=== PATIENT | male | born 1950 | race Caucasian/White ===

== ENCOUNTER 2017-01-08 00:56 | Observation (INO) | payer MEDICAID, OTHER ==
[2017-01-08] VITALS (11 sets, daily range): BP systolic 115–157; BP diastolic 71–93; PULSE 49–62; RESP 16–20; TEMP 96.2–98.5; O2SAT 95–98
--- NOTE | 2017-01-08 01:42 | PD ---
HPI Chief Complaint: Chest Pain Time Seen by Provider: 01:30 Travel History International Travel<30 days: No Contact w/Intl Traveler<30days: No Traveled to known affect area: No History of Present Illness HPI The patient is a 66-year-old male who presents emergency department for chest pain. The patient has had intermittent chest pain over the last 3 days that is substernal, sharp, lasting approximately 30 seconds, nonradiating. He does complain of mild shortness of breath and occasional diaphoresis with this chest pain. The patient states this started 3 days ago when he was moving a p.m. The patient states he got hot, lightheaded, and had a syncopal episode. The patient was seen at [facility] in [place], [place]. Patient states that he was admitted and saw his chip person, Dr. Keyla Umanzor, was subsequently discharged home. The patient does have a history of previous CABG it was performed by Dr. Boucher 2 years ago. The patient states he had an abnormal stress test proximal to 9 months ago and underwent cardiac catheterization, the patient states it was negative. He does complain of mild exertional symptoms that are intermittent, denies any active chest pain upon arrival. The patient's primary physician is Dr. Davalos. [facility] Social History Alcohol Use: No Tobacco Use: No Allergies-Medications (Allergen,Severity, Reaction): Coded Allergies: Red Dyes - Various (Verified Allergy, Severe, 01/08/17) Reported Meds & Prescriptions Reported Meds & Active Scripts Active No Active Prescriptions or Reported Medications Review of Systems Except as stated in HPI: all other systems reviewed are Neg General / Constitutional: No: Fever HENT: Positive: Lightheadedness Cardiovascular: Positive: Chest Pain or Discomfort, Diaphoresis, Dyspnea on exertion Respiratory: Positive: Shortness of Breath Gastrointestinal: Positive: Nausea, No: Abdominal Pain Musculoskeletal: No: Weakness, Edema Neurologic: No: Dizziness Physical Exam Narrative GENERAL: Awake, alert, pleasant 66-year-old male who appears his stated age and is in no acute respiratory distress. SKIN: Focused skin assessment warm/dry. HEAD: Atraumatic. Normocephalic. EYES: Pupils equal and round. No scleral icterus. No injection or drainage. ENT: No nasal bleeding or discharge. Mucous membranes pink and moist. NECK: Trachea midline. No JVD. CARDIOVASCULAR: Regular rate and rhythm. No murmur appreciated. Well-healed surgical scar. RESPIRATORY: No accessory muscle use. Clear to auscultation. Breath sounds equal bilaterally. GASTROINTESTINAL: Abdomen soft, non-tender, nondistended. Well-healed scars in the upper aspect of the abdomen. MUSCULOSKELETAL: No obvious deformities. No clubbing. No cyanosis. No edema. NEUROLOGICAL: Awake and alert. No obvious cranial nerve deficits. Motor grossly within normal limits. Normal speech. PSYCHIATRIC: Appropriate mood and affect; insight and judgment normal. Data Data Last Documented VS Vital Signs Date Time Temp Pulse Resp B/P Pulse Ox O2 Delivery O2 Flow Rate FiO2 01/08/17 01:54 18 97 2 01/08/17 01:54 Nasal Cannula 01/08/17 01:54 54 132/82 125/81 01/08/17 00:57 98.5 Orders Electrocardiogram (01/08/17 ) Electrocardiogram (01/08/17 01:38) Ckmb (Isoenzyme) Profile (01/08/17 01:38) Complete Blood Count With Diff (01/08/17 01:38) Comprehensive Metabolic Panel (01/08/17 01:38) Magnesium (Mg) (01/08/17 01:38) Prothrombin Time / Inr (Pt) (01/08/17 01:38) Act Partial Throm Time (Ptt) (01/08/17 01:38) Troponin I (01/08/17 01:38) Lipase (01/08/17 01:38) Chest, Single Ap (01/08/17 01:38) Ecg Monitoring (01/08/17 01:38) Bilateral Bp Monitoring (01/08/17 01:38) Iv Access Insert/Monitor (01/08/17 01:38) Oximetry (01/08/17 01:38) Oxygen Administration (01/08/17 01:38) Aspirin Chew (Aspirin Chew) (01/08/17 01:45) Sodium Chloride 0.9% Flush (Ns Flush) (01/08/17 01:45) CKMB (01/08/17 01:51) CKMB% (01/08/17 01:51) Admit Order (Ed Use Only) (01/08/17 02:32) Labs Laboratory Tests Test 01/08/17 01:51 White Blood Count 5.3 TH/MM3 Red Blood Count 4.57 MIL/MM3 Hemoglobin 13.6 GM/DL Hematocrit 38.4 % Mean Corpuscular Volume 84.0 FL Mean Corpuscular Hemoglobin 29.8 PG Mean Corpuscular Hemoglobin 35.5 % Concent Red Cell Distribution Width 14.9 % Platelet Count 236 TH/MM3 Mean Platelet Volume 7.4 FL Neutrophils (%) (Auto) 42.1 % Lymphocytes (%) (Auto) 46.5 % Monocytes (%) (Auto) 9.1 % Eosinophils (%) (Auto) 1.9 % Basophils (%) (Auto) 0.4 % Neutrophils # (Auto) 2.2 TH/MM3 Lymphocytes # (Auto) 2.5 TH/MM3 Monocytes # (Auto) 0.5 TH/MM3 Eosinophils # (Auto) 0.1 TH/MM3 Basophils # (Auto) 0.0 TH/MM3 CBC Comment DIFF FINAL Differential Comment Prothrombin Time 10.8 SEC Prothromb Time International 1.0 RATIO Ratio Activated Partial 24.5 SEC Thromboplast Time Sodium Level 137 MEQ/L Potassium Level 3.9 MEQ/L Chloride Level 102 MEQ/L Carbon Dioxide Level 26.7 MEQ/L Anion Gap 8 MEQ/L Blood Urea Nitrogen 11 MG/DL Creatinine 0.89 MG/DL Estimat Glomerular Filtration 86 ML/MIN Rate Random Glucose 313 MG/DL Calcium Level 8.4 MG/DL Magnesium Level 1.7 MG/DL Total Bilirubin 1.4 MG/DL Aspartate Amino Transf 20 U/L (AST/SGOT) Alanine Aminotransferase 42 U/L (ALT/SGPT) Alkaline Phosphatase 79 U/L Total Creatine Kinase 105 U/L Troponin I LESS THAN 0.02 NG/ML Total Protein 6.7 GM/DL Albumin 3.4 GM/DL Lipase 178 U/L [facility] Medical Decision Making Medical Screen Exam Complete: Yes Emergency Medical Condition: Yes Medical Record Reviewed: Yes Interpretation(s) EKG reveals sinus bradycardia with a heart rate of 55. Nonspecific T wave changes. Laboratory Tests Test 01/08/17 01:51 White Blood Count 5.3 TH/MM3 Red Blood Count 4.57 MIL/MM3 Hemoglobin 13.6 GM/DL Hematocrit 38.4 % Mean Corpuscular Volume 84.0 FL Mean Corpuscular Hemoglobin 29.8 PG Mean Corpuscular Hemoglobin 35.5 % Concent Red Cell Distribution Width 14.9 % Platelet Count 236 TH/MM3 Mean Platelet Volume 7.4 FL Neutrophils (%) (Auto) 42.1 % Lymphocytes (%) (Auto) 46.5 % Monocytes (%) (Auto) 9.1 % Eosinophils (%) (Auto) 1.9 % Basophils (%) (Auto) 0.4 % Neutrophils # (Auto) 2.2 TH/MM3 Lymphocytes # (Auto) 2.5 TH/MM3 Monocytes # (Auto) 0.5 TH/MM3 Eosinophils # (Auto) 0.1 TH/MM3 Basophils # (Auto) 0.0 TH/MM3 CBC Comment DIFF FINAL Differential Comment Prothrombin Time 10.8 SEC Prothromb Time International 1.0 RATIO Ratio Activated Partial 24.5 SEC Thromboplast Time Sodium Level 137 MEQ/L Potassium Level 3.9 MEQ/L Chloride Level 102 MEQ/L Carbon Dioxide Level 26.7 MEQ/L Anion Gap 8 MEQ/L Blood Urea Nitrogen 11 MG/DL Creatinine 0.89 MG/DL Estimat Glomerular Filtration 86 ML/MIN Rate Random Glucose 313 MG/DL Calcium Level 8.4 MG/DL Magnesium Level 1.7 MG/DL Total Bilirubin 1.4 MG/DL Aspartate Amino Transf 20 U/L (AST/SGOT) Alanine Aminotransferase 42 U/L (ALT/SGPT) Alkaline Phosphatase 79 U/L Total Creatine Kinase 105 U/L Troponin I LESS THAN 0.02 NG/ML Total Protein 6.7 GM/DL Albumin 3.4 GM/DL Lipase 178 U/L Chest x-ray reveals no acute disease. Sternotomy wires are noted. Differential Diagnosis Differential diagnosis includes acute coronary syndrome, GERD, esophageal spasm , pleurisy, pulmonary embolism, pneumonia, pancreatitis, deconditioning. Narrative Course IV was established, labs are drawn and sent, and the patient was placed on cardiac telemetry monitoring and continuous pulse oximetry monitoring. EKG was ordered and interpreted. Chest x-ray was obtained. The patient was administered aspirin 162 mg orally. The patient's chest x-ray reveals previous sternotomy, otherwise unremarkable. Initial troponin is negative. Glucose is mildly elevated. The patient does have multiple risk factors including previous CABG with CAD, hypertension, hyperlipidemia, and diabetes. The patient will be 23 hour observation to chest pain center for serial cardiac enzymes. The patient's records will also try to be obtained for previous cardiac catheterization from 9 months ago as well as any stress test that was performed prior to the cardiac catheterization. The patient is comfortable with this plan of care. Physician Communication Physician Communication The patient will be 23 hour observation to chest pain center for serial cardiac enzymes and further evaluation by cardiology. Diagnosis Primary Impression: Chest pain Qualified Code: R07.9 - Chest pain, unspecified type Admitting Information Admitting Physician Requests: Observation Scripts No Active Prescriptions or Reported Meds Condition: Stable Joaquin Turner MD January 08, 2017 01:42
[2017-01-08] MEDS ORDERED: SODIUM CHLORIDE 0.9% FLUSH 10 ML FLUSH IVF PRN (01:45)
[2017-01-08] MEDS ORDERED: ASPIRIN 81 MG CHEW TAB PO ONE (01:45)
[2017-01-08 02:02] LABS: AUTOMATED NEUTROPHIL # 2.2 TH/MM3 (1.8-7.7); BASOPHIL % 0.4 % (0.0-2.0); EOSINOPHIL # 0.1 TH/MM3 (0-0.4); EOSINOPHIL % 1.9 % (0.0-4.0); HEMATOCRIT 38.4 % (39.0-51.0); HEMO FLAGS DIFF FINAL; LYMPH % 46.5 % (9.0-44.0); LYMPHOCYTE # 2.5 TH/MM3 (1.0-4.8); MEAN CORPUSCULAR HEMOGLOBIN 29.8 PG (27.0-34.0); MEAN CORPUSCULAR HGB CONC 35.5 % (32.0-36.0); MONO % 9.1 % (0.0-8.0); NEUT % 42.1 % (16.0-70.0); PLATELET COUNT 236 TH/MM3 (150-450); RED BLOOD COUNT 4.57 MIL/MM3 (4.50-5.90); RED CELL DISTRIBUTION WIDTH 14.9 % (11.6-17.2); WHITE BLOOD COUNT 5.3 TH/MM3 (4.0-11.0)
[2017-01-08 02:12] LABS: APTT (PATIENT) 24.5 SEC (24.3-30.1); PROTHROMBIN TIME - PATIENT 10.8 SEC (9.8-11.6)
[2017-01-08 02:20] LABS: ALT (GPT) 42 U/L (12-78); ANION GAP 8 MEQ/L (5-15); AST (GOT) 20 U/L (15-37); BICARBONATE 26.7 MEQ/L (21.0-32.0); BLOOD UREA NITROGEN 11 MG/DL (7-18); CHLORIDE 102 MEQ/L (98-107); GLOMERULAR FILTRATION RATE 86 ML/MIN (>89); MAGNESIUM 1.7 MG/DL (1.5-2.5); POTASSIUM 3.9 MEQ/L (3.5-5.1); SODIUM (NA) 137 MEQ/L (136-145)
[2017-01-08 02:24] LABS: ALKALINE PHOSPHATASE 79 U/L (45-117); CREATINE KINASE 105 U/L (39-308); TOTAL BILIRUBIN ADULT 1.4 MG/DL (0.2-1.0)
[2017-01-08 02:36] LABS: CKMB 1.8 NG/ML (0.5-3.6)
[2017-01-08] MEDS ORDERED: SODIUM CHLORIDE 0.9% FLUSH 10 ML FLUSH IV FLUSH PRN (02:45)
[2017-01-08] MEDS ORDERED: ACETAMINOPHEN 500 MG CPLT PO PRN (02:45)
[2017-01-08] MEDS ORDERED: MORPHINE SULFATE 4 MG/ML INJ IV PRN (02:45)
[2017-01-08] MEDS ORDERED: ACETAMINOPHEN/HYDROcodone 325 MG/7.5 MG TAB PO PRN (02:45)
[2017-01-08] MEDS ORDERED: ONDANSETRON HCL 4 MG/2 ML VIAL IV PRN (02:45)
[2017-01-08] MEDS ORDERED: NITROGLYCERIN 0.4 MG SL 25 TABS/BTL SL PRN (02:45)
[2017-01-08 05:38] LABS: CREATINE KINASE 91 U/L (39-308)
[2017-01-08 08:23] LABS: CREATINE KINASE 78 U/L (39-308)
--- NOTE | 2017-01-08 08:26 | RADRPT ---
EXAM DATE/TIME: 01/08/2017 02:01 [facility] COMPARISON: No previous studies available for comparison. INDICATIONS : Chest pain. MEDICAL HISTORY : None. SURGICAL HISTORY : None. ENCOUNTER: Initial ACUITY: 3 days PAIN SCORE: 5/10 LOCATION: Bilateral chest FINDINGS: A single view of the chest demonstrates the lungs to be symmetrically aerated without evidence of mas s, infiltrate or effusion. The cardiomediastinal contours are unremarkable. Osseous structures are intact. Sternotomy wires are noted. CONCLUSION: No acute disease. Justen Alfredo MD on January 08, 2017 at 2:27 Board Certified Radiologist. This report was verified electronically.
[2017-01-08] MEDS ORDERED: ASPIRIN 325 MG TAB PO SCH (09:00)
[2017-01-08] MEDS ORDERED: SODIUM CHLORIDE 0.9% FLUSH 10 ML FLUSH IV FLUSH SCH (09:00)
[2017-01-08] MEDS ORDERED: REGADENOSON INJ 0.4 MG/5 ML SYR ONE (09:44)
--- NOTE | 2017-01-08 11:02 | HHI.HP ---
[facility] Primary Care Physician Guadalupe Davalos MD Chief Complaint Chest pain History of Present Illness This is a 6-year-old male that presents to ED complaining of 3 days of intermittent chest discomfort. He states he was seen appeared [facility] 2 days ago for the same and was discharged. No stress testing. He states he did see his grinding operator at the time had medication changed but he has not filled them yet. He doesn't history of CAD. States had a three-vessel bypass 2 years ago. He also states that he had a heart catheterization about 9 months ago at [facility]. He states he was told that it looked good. His discomfort is described as a pressure. It last couple minutes at a time. He gets short of breath and diaphoretic with it. No nausea. Nothing in particular brings on the discomfort. Review of Systems General: Patient denies fevers, chills recent, and recent travel HEENT: Patient denies headache, sore throat, difficulty swallowing. Cardiovascular: Has the chest discomfort as mentioned above. Denies sensation of heart beating rapidly or irregularly. No syncope. Occasional diaphoresis. Respiratory: Occasional shortness of breath. Denies inspirational chest discomfort. Denies coughing wheezing or hemoptysis. GI: Patient denies nausea, vomiting, diarrhea, abdominal pain, bloody stools. Musculoskeletal: Patient denies joint pain or edema. Denies calf pain or edema. Neurovascular: Patient denies numbness, tingling, weakness in extremities. Denies headache. Endocrine: Denies polyuria and polydipsia. Hematologic: Denies easy bruising. Skin: Denies rash or itching. Past Family Social History Allergies: Coded Allergies: Red Dyes - Various (Verified Allergy, Severe, 01/08/17) Past Medical History Coronary artery disease with three-vessel bypass 2 years ago. Hypertension, diabetes, and hyperlipidemia. Past Surgical History Coronary artery bypass grafting.. Heart catheterization about 9 months ago without intervention. Reported Medications Reported Meds & Active Scripts Active No Active Prescriptions or Reported Medications Active Ordered Medications Current Medications Medications (Trade) Dose Ordered Sig/Irma Route Start Time Stop Time Status Last Admin (NS Flush) 2 ml UNSCH PRN IV FLUSH 01/08/17 02:45 (NS Flush) 2 ml BID IV FLUSH 01/08/17 09:00 01/08/17 08:00 (Tylenol) 500 mg Q4H PRN PO 01/08/17 02:45 ([place] 7.5-325 Mg) 1 tab Q4H PRN PO 01/08/17 02:45 (Morphine Inj) 2 mg Q4H PRN IV 01/08/17 02:45 (Zofran Inj) 4 mg Q6H PRN IV 01/08/17 02:45 (Nitrostat Sl) 0.4 mg Q5M PRN SL 01/08/17 02:45 (Aspirin) 325 mg DAILY PO 01/08/17 09:00 Family History There is family history of CAD. Social History Patient is a nonsmoker. Denies alcohol or illicit drugs. Physical Exam Vital Signs Vital Signs Date Time Temp Pulse Resp B/P Pulse Ox O2 Delivery O2 Flow Rate FiO2 01/08/17 08:00 97.1 56 20 130/75 95 01/08/17 07:44 57 01/08/17 07:40 96 21 01/08/17 04:09 49 01/08/17 04:08 49 01/08/17 03:39 49 16 143/93 97 01/08/17 03:10 98 01/08/17 02:52 53 18 123/71 98 Room Air 01/08/17 01:54 18 97 2 01/08/17 01:54 97 Nasal Cannula 2 01/08/17 01:54 54 18 132/82 97 Nasal Cannula 2 125/81 01/08/17 01:19 63 18 97 Room Air 01/08/17 00:57 98.5 62 18 157/86 97 Room Air Physical Exam GENERAL: This is a well-nourished, well-developed patient, in no apparent distress. Patient speaks in clear complete sentences. Patient is pleasant. HEENT: Head is atraumatic and normocephalic. Neck is supple without lymphadenopathy and trachea is midline. No JVD or carotid bruits. CARDIOVASCULAR: Regular rate and rhythm without murmurs, gallops, or rubs. RESPIRATORY: Clear to auscultation. Breath sounds equal bilaterally. No wheezes , rales, or rhonchi. Chest wall is nontender. No use of accessory muscles. GASTROINTESTINAL: Abdomen is nontender, nondistended. Abdomen soft. No obvious pulsatile mass or bruit. No CVA tenderness. Strong femoral pulses bilaterally. Normal bowel sounds in all quadrants. MUSCULOSKELETAL: Patient is moving upper and lower extremities freely. No calf tenderness or edema, no Homans sign. Strong pulses in upper and lower extremities. NEUROLOGICAL: Patient is alert and oriented. Cranial nerves 2-12 are grossly intact. No focal deficits and speech is clear. SKIN: No rash and turgor is normal. Laboratory Laboratory Tests Test 01/08/17 01/08/17 01/08/17 01:51 04:32 07:32 White Blood Count 5.3 Red Blood Count 4.57 Hemoglobin 13.6 Hematocrit 38.4 Mean Corpuscular Volume 84.0 Mean Corpuscular Hemoglobin 29.8 Mean Corpuscular Hemoglobin 35.5 Concent Red Cell Distribution Width 14.9 Platelet Count 236 Mean Platelet Volume 7.4 Neutrophils (%) (Auto) 42.1 Lymphocytes (%) (Auto) 46.5 Monocytes (%) (Auto) 9.1 Eosinophils (%) (Auto) 1.9 Basophils (%) (Auto) 0.4 Neutrophils # (Auto) 2.2 Lymphocytes # (Auto) 2.5 Monocytes # (Auto) 0.5 Eosinophils # (Auto) 0.1 Basophils # (Auto) 0.0 CBC Comment DIFF FINAL Differential Comment Prothrombin Time 10.8 Prothromb Time International 1.0 Ratio Activated Partial 24.5 Thromboplast Time Sodium Level 137 Potassium Level 3.9 Chloride Level 102 Carbon Dioxide Level 26.7 Anion Gap 8 Blood Urea Nitrogen 11 Creatinine 0.89 Estimat Glomerular Filtration 86 Rate Random Glucose 313 Calcium Level 8.4 Magnesium Level 1.7 Total Bilirubin 1.4 Aspartate Amino Transf 20 (AST/SGOT) Alanine Aminotransferase 42 (ALT/SGPT) Alkaline Phosphatase 79 Total Creatine Kinase 105 91 78 Creatine Kinase MB 1.8 Troponin I LESS THAN 0.02 LESS THAN 0.02 LESS THAN 0.02 Total Protein 6.7 Albumin 3.4 Lipase 178 Result Diagram: 01/08/1715001/08/17150 Imaging Last 48 hours Impressions Chest X-Ray 01/08/17 0138 Signed Impressions: Service Date/Time: Sunday, January 08, 2017 02:01 - CONCLUSION: No acute disease. Justen Alfredo MD Course EKGs have sinus bradycardia with nonspecific lateral ST changes. Assessment and Plan Assessment and Plan * Chest pain: Patient has had serial cardiac enzymes and EKGs for ruling out purposes. He has been seen by Dr. Mp Lilly of cardiology in the chest pain center and will undergo a Lexiscan. He'll be discharged home if the Lexiscan is nonischemic. We'll notify Dr. Forte if it is abnormal. The outpatient pharmacy manager from the ED has been trying to get back her medication list on the patient. She tried calling Dr. Forte's office but the office informed her that the patient has not been seen in the office since 2014. We will try to get discharge summary from [facility] to get accurate medication list. * CAD: We'll reassess with stress testing. * Hypertension: Continue current medication. * Diabetes: Will have sliding scale insulin coverage. He should resume medication at discharge. He should follow diabetic diet at discharge. * Hyperlipidemia: Continue current medication. Patient is stable at this time. He is agreeable to this plan. Elmer Meyers January 08, 2017 11:02
[2017-01-08] MEDS ORDERED: DEXTROSE 50% IN WATER 50 ML VIAL(D50) IV PRN (11:15)
[2017-01-08] MEDS ORDERED: GLUCAGON 1 MG/ML VIAL IM/SQ PRN (11:15)
--- NOTE | 2017-01-08 12:00 | RADRPT ---
EXAM DATE/TIME: 01/08/2017 09:01 [facility] COMPARISON: No previous studies available for comparison. INDICATIONS : Substernal chest pain with dyspnea for 3 days. Angina. DOSE: 27.3 mCi Tc99m Myoview at stress. 8.8 mCi Tc99m Myoview at rest. 0.4 mg Lexiscan STRESS SYMPTOMS: Dyspnea. EJECTION FRACTION: 63% MEDICAL HISTORY : None SURGICAL HISTORY : CABG Cardiac catherization. ENCOUNTER: Initial ACUITY: 3 days PAIN SCALE: 7/10 LOCATION: Substernal chest TECHNIQUE: The patient underwent pharmacologic stress with infusion of prescribed dose. Continuous ECG tracing was monitored during stress. Gated SPECT imaging was performed after stress and conventional SPECT i maging was performed at rest. The examination was performed on a SPECT/CT scanner, both attenuation and non-corrected datasets were reviewed. FINDINGS: DISTRIBUTION: The best perfused myocardium at stress is the lateral and inferior wall. There is minimal redistribu tion in the mid apical wall of borderline significance. There is minimal redistribution in the infer ior septal region towards the base of more concern. GATED STUDY: Ejection fraction is 63% with normal wall motion. CONCLUSION: Minimal stress-induced redistribution as described above with normal wall motion. This is of borderl ine significance. RISK CATEGORY: Low (<1% Annual Mortality Rate) Bryan Velasco MD FACR on January 08, 2017 at 11:56 Board Certified Radiologist. This report was verified electronically.
--- NOTE | 2017-01-08 13:00 | HHI.DCPOC ---
Discharge Care Plan Diagnosis: (1) Chest pain (2) CAD (coronary artery disease) (3) Hx of CABG (4) Hypertension (5) Hyperlipidemia (6) DM (diabetes mellitus) Goals to Promote Your Health * To prevent worsening of your condition and complications * To maintain your health at the optimal level Directions to Meet Your Goals Take your medications as prescribed Follow your dietary instruction Follow activity as directed Keep your appointments as scheduled Take your immunizations and boosters as scheduled If your symptoms worsen call your PCP, if no PCP go to Urgent Care Center or Emergency Room Smoking is Dangerous to Your Health. Avoid second hand smoke Call the 24-hour hour crisis hotline for domestic abuse at Elmer Meyers January 08, 2017 13:00
[2017-01-08] MEDS ORDERED: METO25TA3 PO (13:17)
[2017-01-08] MEDS ORDERED: ATOR10TA15 PO (13:17)
[2017-01-08] MEDS ORDERED: ASPI325T PO (13:17)
[2017-01-08] MEDS ORDERED: INSULIN (13:17)
--- NOTE | 2017-01-08 13:47 | EKG ---
Date Performed: 01/08/2017 Time Performed: 04:16:45 PTAGE: 66 years EKG: SINUS BRADYCARDIA NONSPECIFIC ST & T-WAVE ABNORMALITY BORDERLINE ECG NO PREVIOUS TRACING DOCTOR: Mp Lilly Interpretating Date/Time 01/08/2017 13:46:02
--- NOTE | 2017-01-08 13:48 | EKG ---
Date Performed: 01/08/2017 Time Performed: 01:21:21 PTAGE: 66 years EKG: SINUS BRADYCARDIA NONSPECIFIC T-WAVE ABNORMALITY BORDERLINE ECG NO PREVIOUS TRACING DOCTOR: Mp Lilly Interpretating Date/Time 01/08/2017 13:46:55
--- NOTE | 2017-01-08 13:54 | TR ---
Date Performed: 01/08/2017 Time Performed: 09:52:57 DOCTOR: Mp Lilly DRUG LIST: CLINICAL HISTORY: REASON FOR TEST: Angina REASON FOR ENDING: OBSERVATION: CONCLUSION: Lexiscan stress test was performed under standard four minute protocol. Radionucl[place] e was injected one minute prior to ending the test. No electrocardiographic abormalities were present to suggest ischemia. Nuclear imaging and interpretation are pending. COMMENTS:
[2017-01-08] MEDS ORDERED: INSULIN ASPART SUPPLEMENTAL SCALE SQ SCH (16:00)
== END 2017-01-08 15:44 | disposition home or self-care (01) ==
LOC: NEPC 00:56 → NEDA 02:34 → NEPFCDU 03:19
PROVIDERS: ADMIT Internal Medicine Interventional Cardiology; ATTEND Internal Medicine Interventional Cardiology
DX: R07.89 Other chest pain (principal); I25.10 Atherosclerotic heart disease of native coronary artery without angina pectoris; I10 Essential (primary) hypertension; E78.5 Hyperlipidemia, unspecified; E11.9 Type 2 diabetes mellitus without complications; Z95.1 Presence of aortocoronary bypass graft; Z91.041 Radiographic dye allergy status; R00.1 Bradycardia, unspecified
CPT/HCPCS: 71010; 78452; 80053; 82550; 82552; 83690; 83735; 84484; 85025; 85610; 85730; 93005; 93017; 99285; A9502; G0378; J2785